=== PATIENT | female | born 1940 | race Caucasian/White ===

== ENCOUNTER 2022-11-04 11:49 | Inpatient (IN) | payer MEDICARE, BC ==
[~2022-11-04] VITALS: Ht 160 cm; Wt 50.9 kg
[~2022-11-04 11:49] MED LIST: ARIP2TAB3 PO; CHOL100044 PO; CYAN500T64 PO; ESCI10TA PO; FOLI1TAB16 PO; Folic Acid PO; LOSA50TA3 PO; MULT-479 PO; THIA100T13 PO
--- NOTE | 2022-11-04 11:50 | NUR ---
RECEIVED PT 82 YRS female came from home by sofia c/o Geralized weekness and trip and fall this morning awake and alert RESPIRATION spont and easy
--- NOTE | 2022-11-04 12:00 | NUR ---
SEEN BY DR. MONTEMAYOR
--- NOTE | 2022-11-04 12:08 | NUR ---
ACCucheck done 122 mg/ld
[2022-11-04] MEDS ORDERED: GABA300C PO (12:23)
[2022-11-04] MEDS ORDERED: ATOR20TA PO (12:23)
[2022-11-04] MEDS ORDERED: PANT40TA49 PO (12:23)
[2022-11-04] MEDS ORDERED: ESCI20TA PO (12:23)
[2022-11-04] MEDS ORDERED: ZIPR40CA2 PO (12:23)
[2022-11-04 12:40] LABS: BASOPHILS % (AUTO) 0.5 % (0.0-2.0); EOSINOPHILS % (AUTO) 0.2 % (0.0-6.0); HEMATOCRIT 42 % (33-45); HEMOGLOBIN 14.4 g/dL (11.5-14.8); MEAN CORPUSCULAR HGB CONC 35 g/dl (31.0-36.0); MEAN CORPUSCULAR VOLUME 87 fL (82-100); MONOCYTES # (AUTO) 0.4 K/uL (0.1-1.30); MONOCYTES % (AUTO) 5.2 % (2.0-12.0); NEUTROPHILS # (AUTO) 5.5 K/uL (1.8-8.9); NEUTROPHILS % (AUTO) 80.1 % (43.0-81.0); PLATELET COUNT (AUTO) 222 K/uL (150-450); RED BLOOD CELL COUNT(AUTO) 4.78 MIL/uL (4.0-5.2); WHITE BLOOD COUNT (AUTO) 6.9 K/uL (4.3-11.0)
--- NOTE | 2022-11-04 12:50 | NUR ---
COVID AND MRSA SENT ED TACK
[2022-11-04 13:02] LABS: ALANINE AMINOTRANSFERASE 16 U/L (12-78); ALBUMIN 3.5 g/dL (3.4-5.0); ALKALINE PHOSPHATASE 186 U/L (46-116); ASPARTATE AMINOTRANSFERASE 35 U/L (15-37); BILIRUBIN,DIRECT 0.6 mg/dL (0.0-0.2)
--- NOTE | 2022-11-04 13:58 | NUR ---
PT SWALLOW AND PASSED NO DIFFECULTY
[2022-11-04 14:04] LABS: CALCIUM, SERUM 9.2 mg/dL (8.5-10.1); CARBON DIOXIDE 21 mmol/L (21-32); CHLORIDE 88 mmol/L (98-107); CREATININE 1.1 mg/dL (0.6-1.3); GLUCOSE 114 mg/dL (74-106); SODIUM SERUM 129 mmol/L (136-145); UREA NITROGEN, BLOOD 35 mg/dL (7-18)
[2022-11-04 14:16] LABS: BILIRUBIN,TOTAL 2.8 mg/dL (0.2-1.0); TOTAL PROTEIN, SERUM 7.4 g/dL (6.4-8.2)
--- NOTE | 2022-11-04 14:50 | NUR ---
called nursing sup regarding pt bed
[2022-11-04] MEDS ORDERED: IV NS 0.9% 1,000 ML IV ONE (15:00)
--- NOTE | 2022-11-04 15:29 | NUR ---
ROOM ASSIGNED 311.2 ADMITTING AWARE.
--- NOTE | 2022-11-04 15:48 | NUR ---
REPORT GIVEN TO NURSE. PT AWAITING TRANSFER TO FLOOR.
[2022-11-04] MEDS ORDERED: CEFTRIAXONE 1GM BAG (ER ONLY) 50 ML IV ONE (15:49)
[2022-11-04] MEDS: CEFTRIAXONE 1GM BAG (ER ONLY) 1 GM/50 ML PIGGYBACK IV ONE ×2 (15:50→16:02)
[2022-11-04] MEDS ORDERED: DOXYCYCLINE HYCLATE (100 MG) 100 MG TABLET ONE (15:50)
[2022-11-04] MEDS ORDERED: POTASSIUM CHLORIDE 20 MEQ TAB.PRT.SR PO ONE ×2 (15:50→16:00)
[2022-11-04] MEDS ORDERED: DOXYCYCLINE HYCLATE (100 MG) 100 MG TABLET PO ONE (16:00)
[2022-11-04] MEDS ORDERED: CEFTRIAXONE 1 G in IV D5W 50 ML IV ONE (16:00)
--- NOTE | 2022-11-04 16:10 | NUR ---
TO CT SCAN OF ABDOMIN
--- NOTE | 2022-11-04 16:13 | NUR ---
NOTIFIED ADMITTING OF PT BED
[2022-11-04 17:00] VITALS: BP 105/59
[2022-11-04 17:00] LABS: BILIRUBIN,URINE NEGATIVE (NEGATIVE); COLOR,URINE YELLOW (YELLOW); LEUKOCYTE ESTERASE ,URINE NEGATIVE (NEGATIVE); NITRITE, URINE NEGATIVE (NEGATIVE); PROTEIN,URINE NEGATIVE (NEGATIVE); UGLUCOSE NEGATIVE (NEGATIVE); UROBILINOGEN,URINE >=8.0 EU/dL (0.2)
[2022-11-04] MEDS ORDERED: HYDROCODONE/APAP 5/325MG TABLET PO PRN (17:00)
[2022-11-04] MEDS: LOSARTAN POTASSIUM 50 MG TABLET PO SCH (17:00)
[2022-11-04] MEDS ORDERED: MAGNESIUM HYDROXIDE 30 ML UDC PO PRN (17:00)
[2022-11-04] MEDS ORDERED: ACETAMINOPHEN 325 MG TABLET PO PRN (17:00)
[2022-11-04] MEDS ORDERED: ONDANSETRON HCL/PF 4 MG/2 ML VIAL IVP PRN (17:00)
[2022-11-04] MEDS ORDERED: Z GUARD REMEDY 4 OZ OINT TP PRN (17:00)
[2022-11-04 17:14] LABS: RBC,URINE 0-2 /HPF (0-2); WBC,URINE 0-2 /HPF (0-3)
[2022-11-04 17:15] LABS: BACTERIA,URINE 1+ /HPF (None Seen); HYALINE CASTS, URINE Few /LPF (None Seen); SQUAMOUS EPITHELIAL CELL,UR Moderate /HPF (None Seen)
[2022-11-04] MEDS: GABAPENTIN 300 MG CAPSULE PO SCH (17:23)
[2022-11-04] MEDS: ENOXAPARIN SODIUM 30 MG/0.3 ML DISP.SYRIN SQ SCH (17:23)
[2022-11-04] MEDS: IV NS 0.9% 1,000 ML IV PRN (17:24)
--- NOTE | 2022-11-04 17:38 | NUR ---
ECHOCARDIOGRAPH TECHMARINE INSULATOR NOTES PT ADMITTED TO UNIT VIA GURNEY AT 1700 ACCOMPANIED BY Wojciech MEIER WITH DIAGNOSIS OF NSTEMI. PT IS A/O X3, ABLE TO MAKE NEEDS KNOWN, NO C/O PAIN OR DISCOMFORTS AT THIS TIME. PT ORIENTED TO STAFF AND ROOM. V/S TAKEN, STABLE AND RECORDED. PT ON SUPPLEMENTAL 02 @ 2LPM VIA N/C, TOLERATING WELL, BREATHING EVEN AND UNLABORED, NO ACUTE RESPIRATORY DISTRESS NOTED. PHOTOS OF SKIN ISSUES TAKEN AND FILED ON HER CHART. IV ACCESS ON LEFT WRIST #20G INTACT AND PATENT, IVF OF NS @ 75ML/HR INITIATED PER MD ORDER. LUNGS CLEAR ON AUSCULTATION. ABDOMEN SOFT, FIRM AND NON-DISTENDED WITH POSITIVE BOWEL SOUNDS PRESENTS. PT PLACED ON EXTERNAL YOUTH LEADER WITH CURRENT READING OF NSR, HR 84 BPM, NO C/O CARDIAC DISTRESS VOICED. SAFETY PRECAUTIONS IMPLEMENTED: BED IN LOWEST LOCKED POSITION, SIDE RAILS UP X2, CALL LIGHT AND TRAY TABLE PLACED W/I EASY REACH OF PT. WILL CONTINUE TO MONITOR PT.
--- NOTE | 2022-11-04 18:37 | NUR ---
PULP PILER CLOSING NOTES PT IN BED TALKING ON THE PHONE WITH HER SISTER. HOB ELEVATED. A/O X3, ABLE TO MAKE NEEDS KNOWN. ON SUPPLEMENTAL 02 @ 2LPM VIA N/C, TOLERATING WELL, BREATHING EVEN AND UNLABORED. IV ACCESS ON LEFT WRIST #20G INTACT WITH IVF OF NS @ 75ML/HR INFUSION WELL, NO S/S OF INFILTRATIONS AT SITE NOTED. TELE-MONITOR SHOWS NSR, HR ON THE 90'S AT THIS TIME, NO C/O CARDIAC DISTRESS VOICED. ALL NEEDS AND CARE PROVIDED WELL. FALL AND SAFETY MEASURES MAINTAINED: BED IN LOWEST LOCKED POSITION, SIDE RAILS UP X2, CALL LIGHT AND TRAY TABLE PLACED W/I EASY REACH OF PT. WILL ENDORSE CHIOMA TO GLASS SCULLION NURSE.
--- NOTE | 2022-11-04 19:30 | NUR ---
SENIOR TREASURY ANALYST OPENING NOTE RECEIVED PATIENT IN BED, WITH HOB ELEVATED, AWAKE, ALERT AND ORIENTED X3. ABLE TO MAKE NEEDS KNOWN. AFEBRILE AND NOT IN ANY FORM OF ACUTE DISTRESS. ON O2 INHALATION VIA NASAL CANNULA AT 2LPM. NO C/O PAIN OR DISCOMFORT AT THIS TIME. ON TELE MONITORING WITH CURRENT READING OF SR 84. WITH IV ACCESS ON L WRIST 20G RUNNING WITH NS AT 75ML/HR. SAFETY MEASURES IN PLACE. KEPT BED IN LOCKED AND IN LOW POSITION. SIDE RAILS UP X2. ADVISED TO USE THE CALL LIGHT WHEN IN NEED OF ASSISTANCE.
[2022-11-04 20:00] VITALS: BP 125/69
[2022-11-04] MEDS: ATORVASTATIN 10 MG TABLET PO SCH (21:10)
[2022-11-04] MEDS: ZIPRASIDONE 20 MG CAPSULE PO SCH (21:10)
[2022-11-04 23:57] VITALS: BP 144/84
[2022-11-05 04:33] VITALS: BP 159/90
[2022-11-05] MEDS: IV NS 0.9% 1,000 ML IV PRN (05:59)
--- NOTE | 2022-11-05 06:21 | NUR ---
SYSTEMS SOFTWARE MANAGER CLOSING NOTE PATIENT IN BED, WITH HOB ELEVATED, ASLEEP BUT EASY TO AROUSE AND RESPONSIVE. ALERT AND ORIENTED X3. ABLE TO MAKE NEEDS KNOWN. AFEBRILE AND NOT IN ANY FORM OF ACUTE DISTRESS. ON O2 INHALATION VIA NASAL CANNULA AT 3LPM. NO C/O PAIN OR DISCOMFORT THROUGHOUT THE SHIFT. ON TELE MONITORING WITH CURRENT READING OF SR 76. WITH IV ACCESS ON L WRIST 20G RUNNING WITH NS AT 75ML/HR. MEDICATED ORDERED. SAFETY MEASURES IN PLACE. KEPT BED IN LOCKED AND IN LOW POSITION. SIDE RAILS UP X2. ADVISED TO USE THE CALL LIGHT WHEN IN NEED OF ASSISTANCE. ALL NURSING NEEDS ATTENDED. ENDORSED TO INCOMING SHIFT FOR CONTINUITY OF CARE.
[2022-11-05 06:27] LABS: BASOPHILS % (AUTO) 0.3 % (0.0-2.0); EOSINOPHILS % (AUTO) 0.4 % (0.0-6.0); HEMATOCRIT 40 % (33-45); HEMOGLOBIN 13.9 g/dL (11.5-14.8); LYMPHOCYTES # (AUTO) 1.1 K/uL (0.8-4.8); LYMPHOCYTES % (AUTO) 14.7 % (20.0-44.0); MEAN CORPUSCULAR HGB CONC 35 g/dl (31.0-36.0); MEAN CORPUSCULAR VOLUME 87 fL (82-100); MONOCYTES # (AUTO) 0.3 K/uL (0.1-1.30); MONOCYTES % (AUTO) 4.2 % (2.0-12.0); NEUTROPHILS % (AUTO) 80.4 % (43.0-81.0); PLATELET COUNT (AUTO) 204 K/uL (150-450); RED BLOOD CELL COUNT(AUTO) 4.55 MIL/uL (4.0-5.2); WHITE BLOOD COUNT (AUTO) 7.4 K/uL (4.3-11.0)
[2022-11-05 07:14] LABS: CALCIUM, SERUM 8.7 mg/dL (8.5-10.1); CREATININE 0.8 mg/dL (0.6-1.3); MAGNESIUM 1.8 mg/dL (1.8-2.4); PHOSPHORUS 2.5 mg/dL (2.5-4.9)
[2022-11-05 07:18] LABS: THYROID STIMULATING HORMONE 2.992 uIU/mL (0.358-3.74)
--- NOTE | 2022-11-05 07:25 | NUR ---
CORN CHIP MAKER OPENING NOTES PT RECEIVED IN BED, AWAKE. PT IS A/O X3-4, ABLE TO MAKE NEEDS KNOWN, NO C/O PAIN OR DISCOMFORT AT THIS TIME. PT ON SUPPLEMENTAL 02 VIA N/C @ 2LPM, TOLERATING WELL, BREATHING EVEN AND UNLABORED, NO ACUTE RESPIRATORY DISTRESS NOTED. IV ACCESS ON LEFT WRIST #20G INTACT AND PATENT, IVF OF NS @ 75ML/HR. ON EXTERNAL STRIP WINDER WITH CURRENT READING OF ST, HR 108 BPM, NO C/O CARDIAC DISTRESS. SAFETY PRECAUTIONS IMPLEMENTED: BED IN LOWEST LOCKED POSITION, SIDE RAILS UP X2, CALL LIGHT AND TRAY TABLE PLACED W/I EASY REACH OF PT. WILL CONTINUE TO MONITOR PT.
[2022-11-05 07:50] LABS: POTASSIUM 2.3 mmol/L (3.5-5.1)
[2022-11-05 08:00] VITALS: BP 111/67
[2022-11-05] MEDS: ASPIRIN 81 MG TAB.CHEW PO SCH (08:20)
[2022-11-05] MEDS: PANTOPRAZOLE 40 MG TABLET.DR PO SCH (08:20)
--- NOTE | 2022-11-05 08:21 | NUR ---
RN NOTES RECEIVED CALL FROM MANAGER LEAN SCOTT THAT PT HAD CRITICAL LEVELS OF TROPONIN I HIGH SENS 86, POTASSIUM 2.3 AND LACTIC ACID 2.3. TOBACCO PRIMER MACHINE OPERATOR JOANNA MADE AWARE AND STATED THAT HE WILL PUT NEW ORDERS IN.
[2022-11-05] MEDS: GABAPENTIN 300 MG CAPSULE PO SCH ×3 (08:22→17:05)
[2022-11-05] MEDS: LOSARTAN POTASSIUM 50 MG TABLET PO SCH ×2 (08:23→17:05)
[2022-11-05] MEDS: ESCITALOPRAM OXALATE (10 MG) 10 MG TABLET PO SCH (08:54)
[2022-11-05] MEDS: POTASSIUM CHLORIDE 20 MEQ TAB.PRT.SR PO SCH ×5 (08:55→13:13)
[2022-11-05] MEDS ORDERED: ESCITALOPRAM OXALATE (10 MG) 10 MG TABLET PO SCH (09:00)
--- NOTE | 2022-11-05 10:34 | NUR ---
WOUND CARE CONSULT: PT PRESENTS WITH LEFT KNEE ABRASION, DRY ABRASIONS TO ANKLES, LEFT THIGH AND SACRAL DEEP TISSUE INJURIES (EXTENDING TO BUTTOCKS) WITH SCARRING, ALL PRESENT ON ADMISSION. RECOMMENDATIONS MADE FOR SKIN PROTECTION AND WOUND CARE. DISCUSSED WITH NURSING STAFF. IN AGREEMENT WITH PLAN OF CARE. Addendum: 11/05/22 at 1035 by YOSVANY ALLEN WNDNU Amended: Links added.
[2022-11-05 12:00] VITALS: BP 99/54
[2022-11-05 16:00] VITALS: BP 130/70
[2022-11-05] MEDS ORDERED: CEFTRIAXONE 1 G in IV D5W 50 ML IV SCH (16:00)
--- NOTE | 2022-11-05 16:53 | NUR ---
SS Note: SW RECEIVED CONSULT FOR POSSIBLE NEGLECT PT. IS ELDERLY, LIVES ALONE AT HOME AND HAS NO FOOD AT HOME PER PARAMEDICS. LUCIANA FILED APS REPORT #[id number].
[2022-11-05] MEDS: ENOXAPARIN SODIUM 30 MG/0.3 ML DISP.SYRIN SQ SCH (17:06)
--- NOTE | 2022-11-05 18:39 | NUR ---
PROJECT INTERN CLOSING NOTES PT RESTING IN BED. HOB ELEVATED. A/O X3, ABLE TO MAKE NEEDS KNOWN. ON SUPPLEMENTAL 02 @ 2LPM VIA N/C, TOLERATING WELL, BREATHING EVEN AND UNLABORED. IV ACCESS ON LEFT WRIST #20G INTACT WITH IVF OF NS @ 75ML/HR INFUSION WELL, NO S/S OF INFILTRATIONS AT SITE NOTED. TELE-MONITOR SHOWS NSR, HR ON THE 90'S AT THIS TIME, NO C/O CARDIAC DISTRESS VOICED. ALL NEEDS AND CARE PROVIDED WELL. FALL AND SAFETY MEASURES MAINTAINED: BED IN LOWEST LOCKED POSITION, SIDE RAILS UP X2, CALL LIGHT AND TRAY TABLE PLACED W/I EASY REACH OF PT. WILL ENDORSE CHIOMA TO WINDOW CUTTER NURSE.
--- NOTE | 2022-11-05 19:30 | NUR ---
LINK TRAINER OPERATOR OPENING NOTE RECEIVED PATIENT IN BED, WITH HOB ELEVATED, AWAKE, ALERT AND ORIENTED X3. ABLE TO COMMUNICATE NEEDS WITH THE STAFFS. AFEBRILE AND NOT IN ANY FORM OF ACUTE DISTRESS. ON O2 INHALATION VIA NASAL CANNULA AT 2LPM. NO C/O PAIN OR DISCOMFORT AT THIS TIME. ON TELE MONITORING WITH CURRENT READING OF SR 76. WITH IV ACCESS ON L WRIST 20G RUNNING WITH NS AT 75ML/HR. SAFETY MEASURES IN PLACE. KEPT BED IN LOCKED AND IN LOW POSITION. SIDE RAILS UP X2. ADVISED TO USE THE CALL LIGHT WHEN IN NEED OF ASSISTANCE.
[2022-11-05 20:00] VITALS: BP 99/53
[2022-11-05] MEDS: ATORVASTATIN 10 MG TABLET PO SCH (21:18)
[2022-11-05] MEDS: ZIPRASIDONE 20 MG CAPSULE PO SCH (21:18)
[2022-11-06] VITALS: BP 154/86
[2022-11-06 04:00] VITALS: BP 98/49
[2022-11-06] MEDS: IV NS 0.9% 1,000 ML IV PRN (06:12)
--- NOTE | 2022-11-06 06:30 | NUR ---
BI APPLICATION DEVELOPER OPENING NOTE PATIENT IN BED, WITH HOB ELEVATED, ASLEEP BUT EASY TO AROUSE AND RESPONDS TO VERBAL AND TACTILE STIMULI. ABLE TO COMMUNICATE NEEDS WITH THE STAFFS. AFEBRILE AND NOT IN ANY FORM OF ACUTE DISTRESS. ON O2 INHALATION VIA NASAL CANNULA AT 2LPM. NO C/O PAIN OR DISCOMFORT TRHOUGOUT THE SHIFT. ON TELE MONITORING WITH CURRENT READING OF ST 105. WITH IV ACCESS ON L WRIST 20G RUNNING WITH NS AT 75ML/HR. MEDICATED ORDERED. ENCOURAGED TO TURN AND REPOSITION EVERY 2 HOURS AND TOLERATED TO PROMOTE PROPER CIRCULATION AND COMFORT. SAFETY MEASURES IN PLACE. KEPT BED IN LOCKED AND IN LOW POSITION. SIDE RAILS UP X2. ADVISED TO USE THE CALL LIGHT WHEN IN NEED OF ASSISTANCE. ALL NURSING NEEDS ATTENDED. ENDORSED TO INCOMING SHIFT FOR CONTINUITY OF CARE.
[2022-11-06 06:35] LABS: BASOPHILS % (AUTO) 0.6 % (0.0-2.0); EOSINOPHILS % (AUTO) 0.9 % (0.0-6.0); HEMATOCRIT 42 % (33-45); HEMOGLOBIN 13.9 g/dL (11.5-14.8); LYMPHOCYTES # (AUTO) 1.4 K/uL (0.8-4.8); LYMPHOCYTES % (AUTO) 21.3 % (20.0-44.0); MEAN CORPUSCULAR HGB CONC 34 g/dl (31.0-36.0); MEAN CORPUSCULAR VOLUME 90 fL (82-100); MONOCYTES # (AUTO) 0.4 K/uL (0.1-1.30); MONOCYTES % (AUTO) 6.2 % (2.0-12.0); NEUTROPHILS # (AUTO) 4.7 K/uL (1.8-8.9); PLATELET COUNT (AUTO) 191 K/uL (150-450); RED BLOOD CELL COUNT(AUTO) 4.64 MIL/uL (4.0-5.2); WHITE BLOOD COUNT (AUTO) 6.7 K/uL (4.3-11.0)
[2022-11-06 07:22] LABS: ALBUMIN 3.4 g/dL (3.4-5.0); BILIRUBIN,TOTAL 1.4 mg/dL (0.2-1.0); CALCIUM, SERUM 8.9 mg/dL (8.5-10.1); MAGNESIUM 1.9 mg/dL (1.8-2.4); PHOSPHORUS 2.9 mg/dL (2.5-4.9); POTASSIUM 3.1 mmol/L (3.5-5.1); TOTAL PROTEIN, SERUM 7.4 g/dL (6.4-8.2)
[2022-11-06 08:00] VITALS: BP 186/91
--- NOTE | 2022-11-06 08:07 | NUR ---
RN OPENING NOTE RECEIVED PATIENT IN BED, AO X 3. ABLE TO RESPONDS PHYSICAL STIMULI. RESPIRATORY EVEN AND UNLABORED ON OXYGEN AT 1 L VIA NC. IN NO ACUTE DISTRESS OBSERVED. SKIN IS WARM TO TOUCH, KEEP CLEAN/DRY. KEPT ELEVATED HOB FOR ASPIRATION PRECAUTION/ENSURE AIRWAY, AND LOWEST BED POSITIONED. BED ALARM IS ON AT ALL THE TIME FOR SAFETY. CALL LIGHT WITHIN REACH, WILL CONTINUE TO MONITOR
[2022-11-06] MEDS: ESCITALOPRAM OXALATE (10 MG) 10 MG TABLET PO SCH (08:34)
[2022-11-06] MEDS: ASPIRIN 81 MG TAB.CHEW PO SCH (08:34)
[2022-11-06] MEDS: GABAPENTIN 300 MG CAPSULE PO SCH ×3 (08:35→17:14)
[2022-11-06] MEDS: PANTOPRAZOLE 40 MG TABLET.DR PO SCH (08:35)
[2022-11-06] MEDS: LOSARTAN POTASSIUM 50 MG TABLET PO SCH ×2 (08:35→17:00)
[2022-11-06] MEDS: POTASSIUM CHLORIDE 20 MEQ TAB.PRT.SR PO SCH ×3 (09:20→11:28)
[2022-11-06 16:00] VITALS: BP 89/59
[2022-11-06] MEDS: ENOXAPARIN SODIUM 30 MG/0.3 ML DISP.SYRIN SQ SCH (17:15)
--- NOTE | 2022-11-06 18:52 | NUR ---
RN CLOSING NOTE PATIENT RESTING IN BED. IN NO DISTRESS OBSERVED. RESPIRATORY EVEN AND UNLABORED ON OXYGEN AT 1 L VIA NC AND NO RESPIRATORY DISTRESS NOTED. SKIN IS WARM TO TOUCH KEEP CLEAN/DRY. ENCOURAGED PATIENT TO ORAL FLUID INTAKE TOLERATED. KEPT ELEVATED HOB FOR ENSURE AIRWAY/ASPIRATION PRECAUTION, AND LOWEST BED POSITION. BED ALARM IS ON AT ALL THE TIME FOR SAFETY. CALL LIGHT WITHIN REACH, WILL ENDORSE RN NEUROSURGICAL.
--- NOTE | 2022-11-06 19:23 | NUR ---
RN OPENING NOTE RECEIVED PATIENT IN BED, AO X 3.ABLE TO MAKE NEEDS KNOWN,ON 1L O2 VIA NC BRENT WELL SATTING 98%,NO SOB/DISTRESS NOTED,NO COMPLAIN OF PAIN/DISCOMFORT AT THIS TIME,SAFETY MEASURE IN PLACE,CALL LIGHT WITHIN REACH, WILL CONTINUE TO MONITOR
[2022-11-06 20:00] VITALS: BP 151/77
[2022-11-06] MEDS: ZIPRASIDONE 20 MG CAPSULE PO SCH (21:12)
[2022-11-06] MEDS: ATORVASTATIN 10 MG TABLET PO SCH (21:12)
[2022-11-07] MEDS: IV NS 0.9% 1,000 ML IV PRN (05:30)
--- NOTE | 2022-11-07 06:26 | NUR ---
RN CLOSING NOTE; PATIENT IN BED, AO X 3.ABLE TO MAKE NEEDS KNOWN,ON 1L O2 VIA NC BRENT WELL SATTING 99%,NO SOB/DISTRESS NOTED,NO COMPLAIN OF PAIN/DISCOMFORT DURING SHIFT,DUE MEDS GIVEN ORDER,ALL NEEDS ATTENDED,IV ACCESS ON LEFT WRIST WITH NS 75ML/HR INFUSING WELL,PT ON [place] 1100 ML OUTPUT.SAFETY MEASURE IN PLACE,CALL LIGHT WITHIN REACH, WILL ENDORSED TO NEXT SHIFT.
[2022-11-07 08:00] VITALS: BP 144/72
--- NOTE | 2022-11-07 08:01 | NUR ---
RN OPENING NOTE; PATIENT IN BED, AO X 3.ABLE TO MAKE NEEDS KNOWN,ON 1L O2 VIA NC SAT BETWEEN 88-90%O2 INCREASE TO 3LPM, WITH O2SAT INCREASED OVER 5 MINS AT 96% NO SOB/DISTRESS NOTED,NO COMPLAIN OF PAIN/DISCOMFORT AT THIS TIME. IV ACCESS ON LEFT WRIST WITH NS 75ML/HR INFUSING WELL.SAFETY MEASURE IN PLACE,CALL LIGHT WITHIN REACH, WILL CONTINUE TO MONITOR.
[2022-11-07] MEDS: GABAPENTIN 300 MG CAPSULE PO SCH ×2 (08:29→12:19)
[2022-11-07] MEDS: ASPIRIN 81 MG TAB.CHEW PO SCH (08:29)
[2022-11-07] MEDS: PANTOPRAZOLE 40 MG TABLET.DR PO SCH (08:29)
[2022-11-07] MEDS: ESCITALOPRAM OXALATE (10 MG) 10 MG TABLET PO SCH (08:30)
[2022-11-07] MEDS: LOSARTAN POTASSIUM 50 MG TABLET PO SCH (08:30)
[2022-11-07] MEDS ORDERED: AMLODIPINE BESYLATE 2.5 MG TABLET PO SCH (10:00)
[2022-11-07] MEDS ORDERED: AMLO2.5T4 PO (10:57)
--- NOTE | 2022-11-07 11:21 | NUR ---
PATIENT ON ROOM AIR NOW WITH NO SIGNS OF DISTRESS NOTED. WITH DISCHARGED ORDER. WILL MONITOR.
[2022-11-07 12:00] VITALS: BP 138/78
--- NOTE | 2022-11-07 14:33 | NUR ---
DISCHARGED NOTES PATIENT DISCHARGED TO [facility]. A/OX3-4, ON RA TOLERATING WELL WITH SPO2 OF 98%. NO SOB NOTED. VITAL SIGNS TAKEN, STABLE AND RECORDED. PATIENT REFUSED TO TAKE PICTURES OF HER WOUNDS. ALL BELONGINGS ACCOUNTED TO THE PATIENT. ALL DUE MEDS GIVEN. REPORT GIVEN TO [facility] NURSE TANK WAGON DRIVER. DISCHARGED INSTRUCTIONS RELAYED TO PATIENT. IV ACCESS REMOVED WITH NO ACTIVE BLEEDING NOTED. PATIENT LEFT THE UNIT VIA GURNEY ACCOMPANIED BY EMS. FAMILY AWARE. DISCHARGED.
== END 2022-11-07 14:20 | DRG 682 ==
LOC: ER 11:51 → TELE 16:37
PROVIDERS: ADMIT Nurse Practitioner Family; ATTEND Nurse Practitioner Family
DX: N17.0 Acute kidney failure with tubular necrosis (principal); I21.A1 Myocardial infarction type 2; E87.1 Hypo-osmolality and hyponatremia; E87.20 Acidosis, unspecified; F33.1 Major depressive disorder, recurrent, moderate; R62.7 Adult failure to thrive; I10 Essential (primary) hypertension; Z20.822 Contact with and (suspected) exposure to COVID-19; D64.9 Anemia, unspecified; E78.5 Hyperlipidemia, unspecified; G89.29 Other chronic pain; F41.9 Anxiety disorder, unspecified; Y90.9 Presence of alcohol in blood, level not specified; Z79.899 Other long term (current) drug therapy; E80.6 Other disorders of bilirubin metabolism; G24.01 Drug induced subacute dyskinesia; Z85.3 Personal history of malignant neoplasm of breast; R91.8 Other nonspecific abnormal finding of lung field; E07.9 Disorder of thyroid, unspecified; W18.30XA Fall on same level, unspecified, initial encounter; Y92.009 Unspecified place in unspecified non-institutional (private) residence as the place of occurrence of the external cause; Z87.891 Personal history of nicotine dependence; E87.6 Hypokalemia; E11.9 Type 2 diabetes mellitus without complications; F10.20 Alcohol dependence, uncomplicated; K44.9 Diaphragmatic hernia without obstruction or gangrene; N28.1 Cyst of kidney, acquired; E86.0 Dehydration
CPT/HCPCS: 36415; 71045-TC; 71250-TC; 73030-TC; 76700-TC; 80048-TC; 80053-TC; 80061-TC; 80076-TC; 81001; 82962-TC; 83605-TC; 83735-TC; 84100-TC; 84439-TC; 84443-TC; 84484-TC; 85025-TC; 87040-TC; 87081-TC; 87086-TC; 93307-TC; 97112-TC; 97530-TC; C9803; G0378; J0696; J1650; J7030; J7060

== ENCOUNTER 2022-12-22 16:30 | Inpatient (IN) | payer MEDICARE, BC ==
[2022-12-21 20:49] VITALS: BP 140/75
[~2022-12-22] VITALS: Ht 165.1 cm; Wt 48.5 kg
[~2022-12-22 16:30] MED LIST changes: +AMLO2.5T4 PO; -ARIP2TAB3 PO; +ATOR20TA PO; -CHOL100044 PO; -CYAN500T64 PO; -ESCI10TA PO; +ESCI20TA PO; -FOLI1TAB16 PO; -Folic Acid PO; +GABA300C PO; -MULT-479 PO; +PANT40TA49 PO; -THIA100T13 PO; +ZIPR40CA2 PO
--- NOTE | 2022-12-22 17:03 | NUR ---
[facility]I FROM [facility] C/O GENERALIZED WEAKNESS AND FAILURE TO THRIVE
--- NOTE | 2022-12-22 17:15 | NUR ---
DR. NAVA AT BEDSIDE
[2022-12-22 17:19] LABS: BASOPHILS % (AUTO) 0.1 % (0.0-2.0); HEMATOCRIT 30 % (33-45); HEMOGLOBIN 9.6 g/dL (11.5-14.8); LYMPHOCYTES % (AUTO) 7.2 % (20.0-44.0); MEAN CORPUSCULAR HGB CONC 32 g/dl (31.0-36.0); MEAN CORPUSCULAR VOLUME 89 fL (82-100); MONOCYTES # (AUTO) 0.4 K/uL (0.1-1.30); MONOCYTES % (AUTO) 2.5 % (2.0-12.0); NEUTROPHILS # (AUTO) 13.1 K/uL (1.8-8.9); NEUTROPHILS % (AUTO) 90.2 % (43.0-81.0); PLATELET COUNT (AUTO) 220 K/uL (150-450); RED BLOOD CELL COUNT(AUTO) 3.35 MIL/uL (4.0-5.2); WHITE BLOOD COUNT (AUTO) 14.6 K/uL (4.3-11.0)
--- NOTE | 2022-12-22 17:19 | NUR ---
XRAY AT BEDSIDE
--- NOTE | 2022-12-22 17:28 | NUR ---
UA SENT TO LAB
[2022-12-22 17:29] LABS: CALCIUM, SERUM 8.6 mg/dL (8.5-10.1); CARBON DIOXIDE 30 mmol/L (21-32); CHLORIDE 95 mmol/L (98-107); GLUCOSE 111 mg/dL (74-106); POTASSIUM 3.7 mmol/L (3.5-5.1); SODIUM SERUM 134 mmol/L (136-145); UREA NITROGEN, BLOOD 30 mg/dL (7-18)
[2022-12-22 17:36] LABS: ALANINE AMINOTRANSFERASE 48 U/L (12-78); ALBUMIN 3.1 g/dL (3.4-5.0); ALKALINE PHOSPHATASE 84 U/L (46-116); ASPARTATE AMINOTRANSFERASE 88 U/L (15-37); BILIRUBIN,DIRECT 0.5 mg/dL (0.0-0.2); BILIRUBIN,TOTAL 1.4 mg/dL (0.2-1.0); TOTAL PROTEIN, SERUM 7.4 g/dL (6.4-8.2)
--- NOTE | 2022-12-22 17:41 | NUR ---
COVID SWAB SENT TO LAB
[2022-12-22 17:55] LABS: BILIRUBIN,URINE NEGATIVE (NEGATIVE); COLOR,URINE YELLOW (YELLOW); LEUKOCYTE ESTERASE ,URINE 3+ (NEGATIVE); NITRITE, URINE NEGATIVE (NEGATIVE); PH,URINE 6.5 (5.0-8.0); PROTEIN,URINE 2+ mg/dl (NEGATIVE); UGLUCOSE NEGATIVE (NEGATIVE)
[2022-12-22 18:16] LABS: BACTERIA,URINE 4+ /HPF (None Seen); SQUAMOUS EPITHELIAL CELL,UR Few /HPF (None Seen); WBC,URINE TOO NUMEROUS TO COUN /HPF (0-3)
[2022-12-22] MEDS ORDERED: BISA10SU11 RC (18:21)
[2022-12-22] MEDS ORDERED: MAGN400O6 PO (18:21)
[2022-12-22] MEDS ORDERED: LOSA50TA39 PO (18:21)
[2022-12-22] MEDS ORDERED: AMLO2.5T4 PO (18:21)
[2022-12-22] MEDS ORDERED: ESCI10TA PO (18:21)
[2022-12-22] MEDS ORDERED: DOCU-141 PO (18:21)
[2022-12-22] MEDS ORDERED: ATOR10TA PO (18:21)
[2022-12-22] MEDS ORDERED: ACET-868 PO (18:21)
[2022-12-22] MEDS ORDERED: GABA300C PO (18:21)
[2022-12-22] MEDS ORDERED: MAGN400T26 PO (18:21)
[2022-12-22] MEDS ORDERED: SODI1TAB66 PO (18:21)
[2022-12-22] MEDS ORDERED: VANCOMYCIN 1 GM in IV D5W 250 ML IV ONE (18:30)
[2022-12-22] MEDS ORDERED: IV NS 0.9% 1,000 ML BAG IV ONE (18:30)
[2022-12-22] MEDS ORDERED: CEFEPIME 1 GM in IV D5W 50 ML IV ONE (18:30)
--- NOTE | 2022-12-22 20:24 | NUR ---
RM 314-2
--- NOTE | 2022-12-22 20:33 | NUR ---
REPORT GIVEN TO ALICE LIMON
--- NOTE | 2022-12-22 20:53 | NUR ---
TRANSFERRED TO ROOM VIA ACLS PROTOCOL
[2022-12-22] MEDS ORDERED: ONDANSETRON HCL/PF 4 MG/2 ML VIAL IVP PRN (21:00)
[2022-12-22] MEDS ORDERED: MAGNESIUM HYDROXIDE 30 ML UDC PO PRN (21:00)
[2022-12-22] MEDS ORDERED: Z GUARD REMEDY 4 OZ OINT TP PRN (21:00)
[2022-12-22] MEDS ORDERED: BISACODYL SUPP (10 MG) 10 MG/SUPP.RECT SUPP.RECT RC PRN (21:00)
--- NOTE | 2022-12-22 21:00 | NUR ---
LABOR RELATIONS WORKER ADMITTING NOTE RECEIVED PATIENT AWAKE A/OX2-3. ABLE TO MAKE NEEDS KNOWN. PATIENT SPEECH IS DELAYED. BUT IS ABLE TO UNDERSTAND CONCEPTS AND ANSWERS APPROPRIATELY. PATIENT IN ROOM AIR TOLERATING WELL NO SIGNS OF SHORTNESS OF BREATH. BREATHING EVENLY, UNLABORED. NO COMPLAINTS OF PAIN AND NOT IN DISTRESS AT THIS TIME. PATIENT IN TELE MONITOR WITH A READING OF SINUS TACHYCARDIA 102BPM. SKIN ASSESSMENT IS DONE. SACRAL REDNESS, LEFT KNEE SCAR, BACK RASH, RIGHT FEET SCRATCH NOTED. IV ACCESS ON LEFT HAND G#20 INFUSING NS 0.9% @ 75ML/HR ORDERED. IV ACCESS IS NOTED TO BE INTACT AND PATENT. PATIENT IS WITH ELLISON CATHETER. PERINEAL AREA WAS CHECKED NO REDNESS OR SWELLING NOTED ELLISON IS DRAINING WELL. PATIENT IS ORIENTED TO THE ROOM. VERBALIZES UNDERSTANDING. ALL BELONGINGS ARE ACCOUNTED FOR. SAFETY MEASURES IMPLEMENTED; BED LOCKED AND IN LOWEST POSITION, SIDE RAILS UP X3, CALL LIGHT AND BEDSIDE TABLE WITHIN PATIENT REACH.
[2022-12-22] MEDS: IV NS 0.9% 1,000 ML IV PRN (21:26)
[2022-12-22] MEDS: MAGNESIUM OXIDE 400 MG TABLET PO SCH (21:57)
[2022-12-22] MEDS: ENOXAPARIN SODIUM 40 MG/0.4 ML DISP.SYRIN SQ SCH (21:57)
[2022-12-22] MEDS: ZIPRASIDONE 20 MG CAPSULE PO SCH (21:58)
[2022-12-22] MEDS: ATORVASTATIN 10 MG TABLET PO SCH (21:58)
[2022-12-23] VITALS: BP 131/91
--- NOTE | 2022-12-23 04:40 | NUR ---
RN NOTE PATIENT IS HAVING FEVER TEMPERATURE IS 102 FAHRENHEIT. PATIENT IS GIVEN TYLENOL PRN MEDICATION ORDERED. SPONGE BATH AND OTHER COOLING MEASURES DONE. WILL CONTINUE TO MONITOR.
[2022-12-23 04:51] VITALS: BP 157/78
[2022-12-23] MEDS: ACETAMINOPHEN 325 MG TABLET PO PRN (04:51)
[2022-12-23 06:26] LABS: BASOPHILS % (AUTO) 0.1 % (0.0-2.0); HEMATOCRIT 24 % (33-45); HEMOGLOBIN 7.8 g/dL (11.5-14.8); LYMPHOCYTES # (AUTO) 0.7 K/uL (0.8-4.8); LYMPHOCYTES % (AUTO) 4.8 % (20.0-44.0); MEAN CORPUSCULAR HGB CONC 33 g/dl (31.0-36.0); MEAN CORPUSCULAR VOLUME 89 fL (82-100); MONOCYTES # (AUTO) 0.5 K/uL (0.1-1.30); MONOCYTES % (AUTO) 3.6 % (2.0-12.0); NEUTROPHILS # (AUTO) 12.5 K/uL (1.8-8.9); NEUTROPHILS % (AUTO) 91.5 % (43.0-81.0); PLATELET COUNT (AUTO) 183 K/uL (150-450); RED BLOOD CELL COUNT(AUTO) 2.69 MIL/uL (4.0-5.2); WHITE BLOOD COUNT (AUTO) 13.6 K/uL (4.3-11.0)
[2022-12-23 06:53] LABS: CALCIUM, SERUM 7.3 mg/dL (8.5-10.1); CARBON DIOXIDE 26 mmol/L (21-32); CHLORIDE 100 mmol/L (98-107); CREATININE 0.9 mg/dL (0.6-1.3); GLUCOSE 140 mg/dL (74-106); IRON, SERUM 15 ug/dl (50-175); MAGNESIUM 1.5 mg/dL (1.8-2.4); PHOSPHORUS 1.9 mg/dL (2.5-4.9); SODIUM SERUM 135 mmol/L (136-145); TOTAL IRON BINDING CAPACITY 152 ug/dl (250-450); UREA NITROGEN, BLOOD 25 mg/dL (7-18)
[2022-12-23 06:55] LABS: POTASSIUM 2.4 mmol/L (3.5-5.1)
--- NOTE | 2022-12-23 06:59 | NUR ---
GANG PLANK WORKMAN CLOSING NOTES PATIENT IN BED SLEEPING. EASILY AWAKEN WHEN CALLED BY NAME. A/O X2-3. ABLE TO MAKE NEEDS KNOWN. DELAYED SPEECH. PATIENT WITH ELLISON CATHETER DRAINING WELL WITH CLOUDY OUTPUT OF 600CC. IV ACCESS ON RIGHT HAND #20 INFUSING NS 0.9% @75ML/HR. PATIENT IS AFEBRILE TEMP. OF 98.8. PATIENT NOT IN DISTRESS NOTED. IV SITE NOTED TO BE FLUSHING WELL, INTACT AND PATENT. ALL DUE MEDICATIONS ARE GIVEN. MADE SURE PATIENT IS COMFORTABLE, ALL NEEDS ARE MET. SAFETY MEASURES IN PLACED; BED LOCKED AND IN LOWEST POSITION. HOB SLIGHTLY ELEVATED, CALL LIGHT AND BEDSIDE TABLE WITHIN PATIENTS REACH. WILL ENDORSE TO NEXT SHIFT NURSE FOR CONTINUITY OF CARE. Addendum: 12/23/22 at 0703 by BRAXTON MCKINNEY RN GANG PLANK WORKMAN CLOSING NOTES PATIENT IN BED SLEEPING. EASILY AWAKEN WHEN CALLED BY NAME. A/O X2-3. ABLE TO MAKE NEEDS KNOWN. DELAYED SPEECH. PATIENT WITH ELLISON CATHETER DRAINING WELL WITH CLOUDY OUTPUT OF 600CC. IV ACCESS ON RIGHT HAND #20 INFUSING NS 0.9% @75ML/HR. PATIENT IS AFEBRILE TEMP. OF 98.8. PATIENT ON TELE MONITOR WITH READING OF SINUS RHYTHM 87BPM WITH OCCASIONAL PAC PATIENT NOT IN DISTRESS NOTED. IV SITE NOTED TO BE FLUSHING WELL, INTACT AND PATENT. ALL DUE MEDICATIONS ARE GIVEN. MADE SURE PATIENT IS COMFORTABLE, ALL NEEDS ARE MET. SAFETY MEASURES IN PLACED; BED LOCKED AND IN LOWEST POSITION. HOB SLIGHTLY ELEVATED, CALL LIGHT AND BEDSIDE TABLE WITHIN PATIENTS REACH. WILL ENDORSE TO NEXT SHIFT NURSE FOR CONTINUITY OF CARE.
[2022-12-23] MEDS ORDERED: POTASSIUM CHLORIDE 20 MEQ TAB.PRT.SR PO ONE (07:30)
[2022-12-23] MEDS ORDERED: Magnesium 1GM/D5W 100ML PREMIX 100 ML IV SCH (07:30)
--- NOTE | 2022-12-23 07:30 | NUR ---
LIVE OUT NANNY NOTES PT IN BED, ASLEEP, EASY TO AROUSE, NO SIGN OF PAIN OR DISTRESS, CALL LIGHT WITHIN REACH, IV FLUIDS INFUSING WELL, BED ALARM ON, KEPT COMFORTABLE IN BED, ELLISON IN PLACE, DRAINING WELL WITH CLEAR, YELLOW URINE.
[2022-12-23 07:34] LABS: FERRITIN 1824 ng/mL (8-388); THYROID STIMULATING HORMONE 1.705 uIU/mL (0.358-3.74)
[2022-12-23 08:02] VITALS: BP 138/60
[2022-12-23] MEDS: PANTOPRAZOLE 40 MG TABLET.DR PO SCH ×2 (08:40→09:15)
[2022-12-23] MEDS: GABAPENTIN 300 MG CAPSULE PO SCH (09:00)
[2022-12-23] MEDS: ESCITALOPRAM OXALATE (10 MG) 10 MG TABLET PO SCH (09:00)
[2022-12-23] MEDS: DOCUSATE SODIUM 100 MG CAPSULE PO SCH (09:00)
--- NOTE | 2022-12-23 09:00 | NUR ---
HAND FUNNEL COATER NOTES PT LETHARGIC BUT AROUSABLE, LEXAPRO, GABAPENTIN, COLACE AND KDUR TABS NOT GIVEN, PT SLEEPY, RISK FOR ASPIRATION.
[2022-12-23] MEDS: LOSARTAN POTASSIUM 50 MG TABLET PO SCH (09:15)
[2022-12-23] MEDS: AMLODIPINE BESYLATE 2.5 MG TABLET PO SCH (09:16)
[2022-12-23] MEDS: CEFTRIAXONE 1 G in IV D5W 50 ML IV SCH (09:35)
[2022-12-23] MEDS: POTASSIUM PHOSPHATE MM 7.5 MMOL in IV NS 0.9% 100 ML IV SCH ×2 (10:07→15:33)
--- NOTE | 2022-12-23 11:07 | NUR ---
CIRCUIT MANAGER NOTES PT TOO SLEEPY, UNABLE TO TOLERATE KDUR TABS PO, DR. GASTELUM ORDERED TO CHANGE IT TO IV FORM, NOTED AND CARRIED OUT.
[2022-12-23] MEDS: POTASSIUM CL. PREMIX PERIPHER. 50 ML IV SCH ×8 (11:57→21:28)
[2022-12-23 12:07] VITALS: BP 118/62
[2022-12-23] MEDS: SOD FERRIC GLUC 125 MG in IV NS 0.9% 100 ML IV SCH (14:09)
[2022-12-23 15:53] VITALS: BP 102/79
[2022-12-23 16:42] LABS: CALCIUM, SERUM 7.6 mg/dL (8.5-10.1); CREATININE 0.9 mg/dL (0.6-1.3); POTASSIUM 3.2 mmol/L (3.5-5.1)
[2022-12-23] MEDS: ENSURE ENLIVE 237 ML LIQUID (VANILLA) PO SCH (17:45)
--- NOTE | 2022-12-23 18:07 | NUR ---
BUSINESS DEVELOPMENT RECRUITER NOTES PT IN BED, AWAKE NOW, ALERT AND VERBALLY RESPONSIVE, NOT IN DISTRESS, ASSISTED WITH DINNER, ASPIRATION PRECAUTIONS OBSERVED, KEPT HOB, PM MEDS GIVEN ORDERED, PM CARE PROVIDED, ELLISON IN PLACE DRAINING WELL WITH CLEAR, YELLOW URINE, IV FLUIDS INFUSING WELL, ALL NEEDS ATTENDED.
--- NOTE | 2022-12-23 19:38 | NUR ---
PCAT INSTRUCTOR OPENING NOTES - RECEIVED PATIENT IN BED WITH EYES CLOSED, EASY TO AROUSE. A/O X3. BREATHING EVEN AND NON-LABORED ON ROOM AIR. NOT IN APPARENT DISTRESS. DENIES PAIN AT THIS TIME. ON TELE MONITOR READING SINUS TACHYCARDIA AT 106 BPM. HAS THE FF IV ACCESS: RIGHT HAND #20G AND SALINE LOCKED; LEFT WRIST #20G WITH KCL 10MEQ RUNNING AT 50 ML/HR AND NS RUNNING AT 25 ML/HR. NO S/S OF INFILTRATION NOTED. HAS INDWELLING ELLISON CATHETER DRAINING CLEAR YELLOW URINE TO BAG BY GRAVITY. SAFETY PRECAUTIONS IN PLACE: BED LOCKED AND IN LOW POSITION, SIDE RAILS UP X2, CALL LIGHT WITHIN REACH. WILL CONTINUE PLAN OF CARE.
[2022-12-23 20:00] VITALS: BP 154/74
--- NOTE | 2022-12-23 20:27 | NUR ---
WILL HOLD LOVENOX 40 MG SINCE HGB DROPPED FROM 9.6 TO 7.8. HOSPITALIST ANSELMO MARSHALL NP AWARE.
[2022-12-23] MEDS: ENOXAPARIN SODIUM 40 MG/0.4 ML DISP.SYRIN SQ SCH (20:29)
[2022-12-23] MEDS: MAGNESIUM OXIDE 400 MG TABLET PO SCH (21:04)
[2022-12-23] MEDS: ZIPRASIDONE 20 MG CAPSULE PO SCH (21:04)
[2022-12-23] MEDS: ATORVASTATIN 10 MG TABLET PO SCH (21:04)
[2022-12-24] VITALS (7 sets, daily range): BP systolic 130–164; BP diastolic 54–81
[2022-12-24] MEDS: IV NS 0.9% 1,000 ML IV PRN ×2 (04:36→23:26)
[2022-12-24 05:47] LABS: BASOPHILS % (AUTO) 0.1 % (0.0-2.0); EOSINOPHILS % (AUTO) 0.1 % (0.0-6.0); HEMATOCRIT 25 % (33-45); HEMOGLOBIN 7.9 g/dL (11.5-14.8); LYMPHOCYTES # (AUTO) 0.9 K/uL (0.8-4.8); LYMPHOCYTES % (AUTO) 5.8 % (20.0-44.0); MEAN CORPUSCULAR HGB CONC 32 g/dl (31.0-36.0); MEAN CORPUSCULAR VOLUME 90 fL (82-100); MONOCYTES # (AUTO) 0.6 K/uL (0.1-1.30); MONOCYTES % (AUTO) 4.1 % (2.0-12.0); NEUTROPHILS # (AUTO) 13.5 K/uL (1.8-8.9); NEUTROPHILS % (AUTO) 89.9 % (43.0-81.0); PLATELET COUNT (AUTO) 197 K/uL (150-450); RED BLOOD CELL COUNT(AUTO) 2.75 MIL/uL (4.0-5.2)
[2022-12-24 05:54] LABS: CALCIUM, SERUM 7.8 mg/dL (8.5-10.1); CARBON DIOXIDE 25 mmol/L (21-32); CHLORIDE 107 mmol/L (98-107); CREATININE 0.6 mg/dL (0.6-1.3); GLUCOSE 99 mg/dL (74-106); POTASSIUM 3.6 mmol/L (3.5-5.1); SODIUM SERUM 142 mmol/L (136-145); UREA NITROGEN, BLOOD 20 mg/dL (7-18)
--- NOTE | 2022-12-24 06:40 | NUR ---
NURSE OBGYN CLOSING NOTES - PATIENT SLEEPING, RESPONSIVE TO VERBAL AND TACTILE STIMULI. ABLE TO VERBALIZE NEEDS. NO RESPIRATORY OR CARDIAC DISTRESS NOTED. NO C/O PAIN OR DISCOMFORT AT THIS TIME. AFEBRILE. ON TELE MONITOR READING SINUS RHYTHM AT 98 BPM. LEFT WRIST IV ACCESS WITH NS RUNNING AT 75 ML/HR. INTACT, PATENT AND FLUSHING. CLEAR YELLOW URINE OUTPUT NOTED. ALL DUE MEDS GIVEN AND NEEDS ATTENDED. SAFETY PRECAUTIONS MAINTAINED. WILL ENDORSE TO NEXT SHIFT FOR CHIOMA.
--- NOTE | 2022-12-24 07:30 | NUR ---
GRAPHIC DESIGN INTERN NOTES PT IN BED, AWAKE, ALERT AND VERBALLY RESPONSIVE, DENIES PAIN, NOT IN DISTRESS, CALL LIGHT WITHIN REACH, NEEDS ATTENDED.
--- NOTE | 2022-12-24 07:50 | NUR ---
EXPEDITIONARY FORCE COMBAT SKILLS NOTES PT SEEN AND EXAMINED BY DR. GASTELUM, PLAN OF CARE DISCUSSED WITH PT, VERBALIZED UNDERSTANDING.
[2022-12-24] MEDS ORDERED: POTASSIUM CHLORIDE 20 MEQ TAB.PRT.SR PO ONE (08:00)
[2022-12-24] MEDS: GABAPENTIN 300 MG CAPSULE PO SCH (08:09)
[2022-12-24] MEDS: DOCUSATE SODIUM 100 MG CAPSULE PO SCH (08:09)
[2022-12-24] MEDS: CEFTRIAXONE 1 G in IV D5W 50 ML IV SCH (08:09)
[2022-12-24] MEDS: AMLODIPINE BESYLATE 2.5 MG TABLET PO SCH (08:09)
[2022-12-24] MEDS: LOSARTAN POTASSIUM 50 MG TABLET PO SCH (08:10)
[2022-12-24] MEDS: ESCITALOPRAM OXALATE (10 MG) 10 MG TABLET PO SCH (08:10)
[2022-12-24] MEDS: ENSURE ENLIVE 237 ML LIQUID (VANILLA) PO SCH ×2 (08:10→17:24)
--- NOTE | 2022-12-24 11:59 | NUR ---
SECONDARY ENGLISH TEACHER NOTES PT SEEN BY PHYSICAL THERAPIST, PT ABLE TO AMBULATE INSIDE THE ROOM WITH A WALKER, TOLERATED WELL.
[2022-12-24] MEDS: SOD FERRIC GLUC 125 MG in IV NS 0.9% 100 ML IV SCH (14:48)
--- NOTE | 2022-12-24 18:19 | NUR ---
WELDER MANUFACTURE NOTES PT IN BED, AWAKE, ALERT AND VERBALLY RESPONSIVE, DENIES PAIN, NOT IN DISTRESS, ON ROOM AIR, CALL LIGHT WITHIN REACH, IV FLUIDS INFUSING WELL, F/C DRAINING WELL WITH CLEAR, YELLOW URINE, PM CARE PROVIDED, TURNED AND REPOSITIONED FOR COMFORT, ASSISTED WITH DINNER, WITH SOME ORAL INTAKE TODAY, ALL NEEDS ATTENDED.
--- NOTE | 2022-12-24 19:20 | NUR ---
noc rn opening note received patient in bed, patient is alert, not responding to questions at this time. no s/s of apparent distress on room air. reading st 133 bpm, patient noted to have temperature-- will medicate and continue cooling measures. patel catheter draining via gravity clear, dark yellow urine. IV NS running @75mls/hr. safety in place-- bed in lowest, locked position, call light within reach, side rails up X4, bed alarm in place. will continue with the plan of care for patient.
[2022-12-24] MEDS: ACETAMINOPHEN 325 MG TABLET PO PRN (19:54)
--- NOTE | 2022-12-24 19:54 | NUR ---
noc rn note patient tempertature of 101.7, reading st, given tylenol at this time and started on cooling measures. will monitor.
[2022-12-24] MEDS: ENOXAPARIN SODIUM 40 MG/0.4 ML DISP.SYRIN SQ SCH (21:00)
--- NOTE | 2022-12-24 21:02 | NUR ---
bp re-check- 143/62
--- NOTE | 2022-12-24 21:02 | NUR ---
noc rn note temp went down 99.8, will continue to monitor.
[2022-12-24] MEDS: ZIPRASIDONE 20 MG CAPSULE PO SCH (21:51)
[2022-12-24] MEDS: MAGNESIUM OXIDE 400 MG TABLET PO SCH (21:52)
[2022-12-24] MEDS: ATORVASTATIN 10 MG TABLET PO SCH (21:52)
[2022-12-25] VITALS (7 sets, daily range): BP systolic 133–163; BP diastolic 72–97
[2022-12-25 06:25] LABS: CALCIUM, SERUM 7.5 mg/dL (8.5-10.1); CARBON DIOXIDE 27 mmol/L (21-32); CHLORIDE 105 mmol/L (98-107); CREATININE 0.7 mg/dL (0.6-1.3); GLUCOSE 100 mg/dL (74-106); POTASSIUM 3.4 mmol/L (3.5-5.1); SODIUM SERUM 139 mmol/L (136-145); UREA NITROGEN, BLOOD 14 mg/dL (7-18)
--- NOTE | 2022-12-25 06:53 | NUR ---
noc rn closing note Patient in bed with eyes closed, easy to arouse. no s/s of apparent distress on room air. denies any pain nor discomfort. reading sr this am @75mls/hr. IV NS running @75mls/hr. all needs attended. all scheduled meds administered. safety kept in place the whole shift. will endorse to morning shift rn for continuity of patient care.
[2022-12-25 06:57] LABS: BASOPHILS % (AUTO) 0.1 % (0.0-2.0); EOSINOPHILS % (AUTO) 0.1 % (0.0-6.0); HEMATOCRIT 26 % (33-45); HEMOGLOBIN 8.2 g/dL (11.5-14.8); LYMPHOCYTES # (AUTO) 1.2 K/uL (0.8-4.8); MEAN CORPUSCULAR HGB CONC 31 g/dl (31.0-36.0); MEAN CORPUSCULAR VOLUME 92 fL (82-100); MONOCYTES # (AUTO) 0.4 K/uL (0.1-1.30); MONOCYTES % (AUTO) 2.3 % (2.0-12.0); NEUTROPHILS # (AUTO) 15.2 K/uL (1.8-8.9); NEUTROPHILS % (AUTO) 90.5 % (43.0-81.0); PLATELET COUNT (AUTO) 214 K/uL (150-450); RED BLOOD CELL COUNT(AUTO) 2.85 MIL/uL (4.0-5.2); WHITE BLOOD COUNT (AUTO) 16.8 K/uL (4.3-11.0)
--- NOTE | 2022-12-25 07:55 | NUR ---
REAL ESTATE LEGAL SECRETARY OPENING NOTES: RECEIVED PT ASLEEP, EASILY ROUSED, A/OX3. ON RA WITH NO S/S OF SOB, DENIES PAIN AT THIS TIME. IV ACCESS AT R HAND #20 AND L WRIST # 20 RUNNING NS @ 75ML/HR. TELE MONITOR READS SR, HR= 98. ELLISON CATH NOTED DRAINING CLEAR YELLOW URINE. ALL SAFETY MEASURES IN PLACE, CALL LIGHT AND TABLE WITHIN EASY REACH; WILL CONT WITH PLAN OF CARE DURING SHIFT.
[2022-12-25] MEDS: GABAPENTIN 300 MG CAPSULE PO SCH (08:27)
[2022-12-25] MEDS: LOSARTAN POTASSIUM 50 MG TABLET PO SCH (08:27)
[2022-12-25] MEDS: AMLODIPINE BESYLATE 2.5 MG TABLET PO SCH (08:28)
[2022-12-25] MEDS: DOCUSATE SODIUM 100 MG CAPSULE PO SCH (08:28)
[2022-12-25] MEDS: PANTOPRAZOLE 40 MG TABLET.DR PO SCH (08:28)
[2022-12-25] MEDS: ENSURE ENLIVE 237 ML LIQUID (VANILLA) PO SCH ×2 (08:28→17:03)
[2022-12-25] MEDS: ESCITALOPRAM OXALATE (10 MG) 10 MG TABLET PO SCH (08:28)
[2022-12-25] MEDS ORDERED: POTASSIUM CHLORIDE 20 MEQ TAB.PRT.SR PO ONE (09:00)
[2022-12-25] MEDS: MEROPENEM 500 MG in IV NS 0.9% 50 ML IV SCH ×2 (12:06→21:22)
[2022-12-25] MEDS: SOD FERRIC GLUC 125 MG in IV NS 0.9% 100 ML IV SCH (14:35)
--- NOTE | 2022-12-25 16:05 | NUR ---
RN NOTES: PT ASLEEP, EASILY ROUSED, A/OX3. ON RA WITH NO S/S OF SOB, DENIES PAIN AT THIS TIME. IV ACCESS AT R HAND #20 AND L WRIST # 20 SL, PATENT AND INTACT. TELE MONITOR READS SR, HR= 91. ELLISON CATH NOTED DRAINING CLEAR YELLOW URINE. ALL SAFETY MEASURES IN PLACE, CALL LIGHT AND TABLE WITHIN EASY REACH; WILL ENDORSE TO ALICE TOUSSAINT FOR CHIOMA.
--- NOTE | 2022-12-25 18:58 | NUR ---
BAFFLE MOUNTER NOTES PATIENT IN BED ALERT ORIENTED X 3, NO ACUTE DISTRESS NOTED, BREATHING UNLABORED. DENIED ANY PAIN. ON WALL MIRROR DEPARTMENT SUPERVISOR READS SINUS RHYTHM. IV ACCESS PATIENT AND INTACT, NO REDNESS, NO SWELLING NOTED. NEEDS ATTENDED AND ANTICIPATED. ELLISON CATHETER PATENT AND INTACT. SAFETY MEASURES IN PLACE, CALL LIGHT WITHIN REACH. WILL ENDORSE TO NIGHT NURSE FOR CONTINUITY OF CARE
--- NOTE | 2022-12-25 19:00 | NUR ---
RN OPENING NOTES PT IS A/O X 3. PT IS ON RA, O2 SAT 96%, TOLERATING WELL, BREATHING EVEN AND UNLABORED @THIS TIME. PT IV ACCESS IS ON RIGHT HAND #20G SALINE LOCK RUNNING IV 0.9% Ns 250ML @ 5MLS/HR TKO, PATENT, INTACT AND FLUSHES WELL WITH NO S & SX OF INFILTRATION @ SITE NOTED. PT ON TELE MONITOR WITH CURRENT READING OF ST/SR. PT ELLISON CATHETER IS IN PLACE DRAINING YELLOW COLORED URINE. SAFETY MEASURES IS IN PLACE . BED AT ITS LOWEST AND LOCKED POSITION. SIDE RAILS UP X 4. BEDSIDE TABLE AND CALL LIGHT IS EASY REACH. BED ALARM IS ON,. WILL CONTINUE TO MONITOR PT. ACCORDINGLY.
[2022-12-25] MEDS: ENOXAPARIN SODIUM 40 MG/0.4 ML DISP.SYRIN SQ SCH (21:00)
[2022-12-25] MEDS: ATORVASTATIN 10 MG TABLET PO SCH (21:22)
[2022-12-25] MEDS: ZIPRASIDONE 20 MG CAPSULE PO SCH (21:22)
[2022-12-25] MEDS: MAGNESIUM OXIDE 400 MG TABLET PO SCH (22:00)
[2022-12-26] VITALS: BP 146/78
[2022-12-26 04:00] VITALS: BP 155/94
[2022-12-26] MEDS: MEROPENEM 500 MG in IV NS 0.9% 50 ML IV SCH ×2 (04:12→12:08)
--- NOTE | 2022-12-26 06:32 | NUR ---
RN CLOSING NOTES PT IS ASLEEP AND RESTING COMFORTABLY IN BED. PT IS A/O X 3. RESPONSIVE AND FOLLOWS VERBAL COMMAND. PT IS ON RA, O2 SAT 96%, NO RESPIRATORY DISTRESS @THIS TIME. PT IV ACCESS IS ON RIGHT HAND #20G SALINE LOCK RUNNING IV 0.9% Ns 250ML @ 5MLS/HR TKO, PATENT, INTACT AND FLUSHES WELL WITH NO S & SX OF INFILTRATION @ SITE NOTED. PT ON TELE MONITOR WITH CURRENT READING OF SR W/ PVC, HR 88BPM. PT ELLISON CATHETER IS IN PLACE DRAINING YELLOW COLORED URINE. ADMINISTERED ALL PT MEDICATIONS ACCORDINGLY PER MD'S ORDER. SAFETY MEASURES IS IN PLACE . BED AT ITS LOWEST AND LOCKED POSITION. SIDE RAILS UP X 4. BEDSIDE TABLE AND CALL LIGHT IS EASY REACH. BED ALARM IS ON,. WILL ENDORSE TO THE NEXT SHIFT FOR CONTINUITY OF CARE.
[2022-12-26 06:45] LABS: BASOPHILS % (AUTO) 0.1 % (0.0-2.0); EOSINOPHILS % (AUTO) 0.6 % (0.0-6.0); HEMATOCRIT 25 % (33-45); HEMOGLOBIN 8.2 g/dL (11.5-14.8); LYMPHOCYTES # (AUTO) 1.1 K/uL (0.8-4.8); LYMPHOCYTES % (AUTO) 6.7 % (20.0-44.0); MEAN CORPUSCULAR HGB CONC 32 g/dl (31.0-36.0); MEAN CORPUSCULAR VOLUME 89 fL (82-100); MONOCYTES # (AUTO) 0.5 K/uL (0.1-1.30); NEUTROPHILS # (AUTO) 14.3 K/uL (1.8-8.9); NEUTROPHILS % (AUTO) 89.6 % (43.0-81.0); PLATELET COUNT (AUTO) 243 K/uL (150-450); RED BLOOD CELL COUNT(AUTO) 2.85 MIL/uL (4.0-5.2)
[2022-12-26 07:00] VITALS: BP 167/82
[2022-12-26 07:09] LABS: CALCIUM, SERUM 7.9 mg/dL (8.5-10.1); CREATININE 0.7 mg/dL (0.6-1.3); MAGNESIUM 1.4 mg/dL (1.8-2.4); PHOSPHORUS 2.2 mg/dL (2.5-4.9); POTASSIUM 3.1 mmol/L (3.5-5.1)
--- NOTE | 2022-12-26 07:15 | NUR ---
JACKHAMMER OPERATOR OPENING NOTES RECEIVED PT IN BED WITH HOB ELEVATED, A/O X 3. ON ROOM AIR BREATHING WITHOUT DIFFICULTY SATURATING AT 96%, NOT IN ANY FORM OF ACUTE DISTRESS. IV ACCESS ON ON RIGHT HAND #20G SALINE LOCK RUNNING IV 0.9% Ns 250ML @ 5MLS/HR TO KEEP VEIN OPEN, LFA G#20 SALINE LOCKED, PATENT, INTACT AND FLUSHES WELL WITH NO S & SX OF INFILTRATIO. ON TELE MONITOR WITH CURRENT READING OF SR WITH PACS AND HR OF 95 BPM. HAS ELLISON CATHETER IN PLACE DRAINING PALE YELLOW COLORED URINE VIA GRAVITY. SAFETY MEASURES IS IN PLACE: BED AT LOWEST AND LOCKED POSITION. SIDE RAILS UP X 3, BED ALARM ON, TRAY TABLE AND CALL LIGHT WITHINI EASY REACH. WILL CONTINUE TO MONITOR.
[2022-12-26] MEDS: PANTOPRAZOLE 40 MG TABLET.DR PO SCH (07:46)
[2022-12-26] MEDS: ENSURE ENLIVE 237 ML LIQUID (VANILLA) PO SCH (08:16)
[2022-12-26] MEDS: ESCITALOPRAM OXALATE (10 MG) 10 MG TABLET PO SCH (08:55)
[2022-12-26] MEDS: DOCUSATE SODIUM 100 MG CAPSULE PO SCH (08:56)
[2022-12-26] MEDS: GABAPENTIN 300 MG CAPSULE PO SCH (08:56)
[2022-12-26] MEDS: AMLODIPINE BESYLATE 2.5 MG TABLET PO SCH (08:56)
[2022-12-26] MEDS: LOSARTAN POTASSIUM 50 MG TABLET PO SCH (08:56)
[2022-12-26] MEDS ORDERED: POTASSIUM CHLORIDE 20 MEQ TAB.PRT.SR PO ONE (09:00)
[2022-12-26] MEDS ORDERED: MAGNESIUM OXIDE 400 MG TABLET PO ONE (10:00)
[2022-12-26] MEDS ORDERED: K PHOS NEUTRAL 250 MG TABLET PO ONE (10:00)
[2022-12-26] MEDS ORDERED: MERO500V23 IV (10:15)
[2022-12-26 12:00] VITALS: BP 149/75
--- NOTE | 2022-12-26 14:40 | NUR ---
CLEANING SUPERVISOR DISCHARGE NOTE [facility]. PT AOX2-3, AFEBRILE, ABLE TO MAKE NEEDS KNOWN, ON ROOM AIR BREATHING WITHOUT DIFFICULTY. NO SOB NOTED, NOT IN ANY FORM OF RESPIRATORY DISTRESS. LAST TELE READING WAS SR WITH PACS WITH 90 HR. VITAL SIGNS TAKEN, STABLE AND RECORDED. SKIN IS INTACT, PICTURES TAKEN FOR REFERENCE VS ADMISSION. DENIED PAIN NOR DISCOMFORT. NO BELONGINGS NOTED. DISCHARGE INSTRUCTIONS RELAYED TO [facility] [place]. MED RECON AND COVID TEST INCLUDED. REMOVED IV ACCESS ON LEFT ARM AND KEPT IV ACCESS G#20 ON RIGHT ARM FOR THE CONTINUATION OF IV ATB THERAPY AT THE SNF. PT IS DISCHARGED WITH ELLISON CATHETER IN PLACED, DRAINED ABOUT 1000 ML OF PALE YELLOW URINE WITHOUT ANY SEDIMENTS. PATIENT WAS PICKED UP BY 2 [employer]IP GAUGER [facility]IA [facility] AT 1430 SAFELY. MD AND CHARGE NURSE AWARE OF THE DISCHARGE.
== END 2022-12-26 14:30 | DRG 871 ==
LOC: ER 16:31 → TELE 20:33
PROVIDERS: ADMIT Nurse Practitioner Family; ATTEND Internal Medicine
DX: A41.51 Sepsis due to Escherichia coli [E. coli] (principal); G93.41 Metabolic encephalopathy; I21.A1 Myocardial infarction type 2; N39.0 Urinary tract infection, site not specified; E44.1 Mild protein-calorie malnutrition; E87.1 Hypo-osmolality and hyponatremia; J90 Pleural effusion, not elsewhere classified; J98.11 Atelectasis; Z68.1 Body mass index [BMI] 19.9 or less, adult; Z20.822 Contact with and (suspected) exposure to COVID-19; Z85.3 Personal history of malignant neoplasm of breast; R62.7 Adult failure to thrive; I10 Essential (primary) hypertension; Z79.899 Other long term (current) drug therapy; B96.89 Other specified bacterial agents as the cause of diseases classified elsewhere; D50.9 Iron deficiency anemia, unspecified; R79.89 Other specified abnormal findings of blood chemistry; E88.09 Other disorders of plasma-protein metabolism, not elsewhere classified; R73.03 Prediabetes; F32.A Depression, unspecified; F41.9 Anxiety disorder, unspecified; E83.42 Hypomagnesemia; E87.6 Hypokalemia; E78.5 Hyperlipidemia, unspecified; E83.39 Other disorders of phosphorus metabolism; D63.8 Anemia in other chronic diseases classified elsewhere
CPT/HCPCS: 36415; 71045-TC; 80048-TC; 80076-TC; 81001; 82607-TC; 82728-TC; 83540-TC; 83605-TC; 83735-TC; 84100-TC; 84439-TC; 84443-TC; 84484-TC; 85025-TC; 87040-TC; 87081-TC; 87086-TC; 97116-TC; 97530-TC; A4223; C9803; G0378; J0692; J0696; J1650; J2185; J2916; J3370; J3475; J3480; J3490; J7030; J7050; J7060